=== PATIENT | female | born 1985 | race Two or more races ===

== ENCOUNTER 2017-03-22 13:18 | Inpatient (IN) | payer MEDICAID, OTHER ==
[~2017-03-22] VITALS: Ht 157.5 cm; Wt 148.6 kg
[2017-03-22 14:05] LABS: Basophils # (auto) 0.1 uL; Eosinophils # (auto) 0.1 uL; Eosinophils % (auto) 2.1 % (0.0-7.0); Hematocrit 31.5 % (36.0-46.0); Hemoglobin 10.1 g/dL (12.2-16.2); Lymphocytes % (auto) 14.9 % (10.0-50.0); Mean Corpuscular Hemoglobin 27.4 pg (28.0-32.0); Mean Corpuscular Hgb Conc. 32.2 g/dL (32.0-36.0); Mean Corpuscular Volume 85.1 fL (80.0-100.0); Mean Platelet Volume 10.8 fL (6.9-10.8); Monocytes # (auto) 0.8 uL; Monocytes % (auto) 12.1 % (0.0-12.0); Neutrophils # (auto) 4.6 uL; Neutrophils % (auto) 69.9 % (37.0-80.0); Nucleated Red Blood Cells % 0.2 %; Platelet Count (auto) 239 10^3/uL (140-450); Red Cell Distribution Width 14.8 % (11.8-14.3); White Blood Cell 6.6 10^3/uL (4.4-10.8)
[2017-03-22 14:20] LABS: Albumin 2.5 g/dL (3.4-5.0); BUN/Creatinine Ratio 17.9; Calcium 7.9 mg/dL (8.5-10.1); Potassium 5.4 mmol/L (3.5-5.1)
[2017-03-22 14:22] LABS: Bilirubin, Total 0.3 mg/dL (0.2-1.0); Total Protein 6.8 g/dL (6.4-8.2)
[2017-03-22 16:49] LABS: B-Type Natriuretic Peptide 1824.75 pg/mL (0-100)
[2017-03-22 17:06] LABS: Temperature: 23.3 C (20.0-25.0)
[2017-03-22 17:14] LABS: Urine Bilirubin Negative (Negative); Urine Blood 1+ /uL (Negative); Urine Color Yellow (Yellow); Urine Glucose Normal (Normal); Urine Ketone Negative (Negative); Urine Mucus FEW (None Seen); Urine Nitrite Negative (Negative); Urine RBC 10 /hpf (0 - 4); Urine Squamous Epithelial Cell FEW /hpf (<5); Urine Urobilinogen Normal (Negative); Urine WBC Clumps PRESENT /hpf (None Seen); Urine pH 6.5 (5.0-8.0)
[2017-03-22 17:31] LABS: INR 1.05 (0.9-1.15); Partial Thromboplastin Time 31.1 sec (22.64-33.71); Prothrombin Time 11.4 sec (9.37-12.3)
[2017-03-22] MEDS ORDERED: HYDROcodone-ACET 10/325MG TAB PO ONE (18:15)
[2017-03-22] MEDS ORDERED: cefTRIAXone 1GM/50ML D5W 50 ML IV ONE (18:15)
[2017-03-22] MEDS ORDERED: TEMAZEPAM 15 MG CAP PO PRN (22:30)
[2017-03-22] MEDS ORDERED: POTASSIUM CHL 20 Meq TABLET PO ONE (22:30)
[2017-03-22] MEDS ORDERED: FUROSEMIDE 40 MG/4 ML VIAL IV ONE (22:30)
[2017-03-22] MEDS ORDERED: AZITHROMYCIN 500MG/D5W 250ML 250 ML IV ONE (22:45)
[2017-03-22] MEDS: ACETAMINOPHEN 500 MG TAB PO PRN (23:36)
[2017-03-22 23:55] VITALS: BP 161/102
[2017-03-23] VITALS: BP 161/102
[2017-03-23] MEDS: HYDROcodone-ACET 5/325MG TAB PO PRN ×4 (02:17→23:07)
[2017-03-23] MEDS ORDERED: LOSA100T27 PO (03:51)
[2017-03-23] MEDS ORDERED: HYDR200T36 PO (03:51)
[2017-03-23] MEDS ORDERED: HYDR25TA35 PO (03:51)
[2017-03-23] MEDS ORDERED: LEVO25TA6 PO (03:51)
[2017-03-23] MEDS ORDERED: POTA20TA53 PO (03:51)
[2017-03-23] MEDS ORDERED: METO-158 PO (03:51)
[2017-03-23] MEDS ORDERED: FURO20TA PO (03:51)
[2017-03-23 05:00] VITALS: BP 147/101
[2017-03-23] MEDS: LEVOTHYROXINE SODIUM 100 MCG TAB PO SCH (05:34)
[2017-03-23 06:52] LABS: Basophils # (auto) 0.1 uL; Eosinophils # (auto) 0.1 uL; Eosinophils % (auto) 1.3 % (0.0-7.0); Hematocrit 30.1 % (36.0-46.0); Hemoglobin 9.8 g/dL (12.2-16.2); Lymphocytes # (auto) 1.1 uL; Lymphocytes % (auto) 15.6 % (10.0-50.0); Mean Corpuscular Hemoglobin 28.2 pg (28.0-32.0); Mean Corpuscular Hgb Conc. 32.7 g/dL (32.0-36.0); Mean Corpuscular Volume 86.4 fL (80.0-100.0); Mean Platelet Volume 10.5 fL (6.9-10.8); Monocytes % (auto) 13.7 % (0.0-12.0); Neutrophils # (auto) 4.7 uL; Neutrophils % (auto) 68.4 % (37.0-80.0); Nucleated Red Blood Cells % 0.2 %; Platelet Count (auto) 202 10^3/uL (140-450); Red Cell Distribution Width 15.1 % (11.8-14.3); White Blood Cell 6.9 10^3/uL (4.4-10.8)
[2017-03-23 07:07] LABS: BUN/Creatinine Ratio 17.3; Calcium 7.6 mg/dL (8.5-10.1); Potassium 4.7 mmol/L (3.5-5.1)
[2017-03-23 07:13] LABS: Temperature: 23.3 C (20.0-25.0)
[2017-03-23 07:35] VITALS: BP 145/99
[2017-03-23] MEDS: ONDANSETRON HCL 4 MG/2 ML VIAL IV PRN ×3 (08:46→18:49)
[2017-03-23] MEDS ORDERED: PIPERACILLIN-TAZOB 3.375GM 100 ML IV ONE (09:15)
[2017-03-23] MEDS ORDERED: methylPREDNISolone SOD SUCC 40 MG/ML VL IV SCH (10:00)
[2017-03-23] MEDS ORDERED: LOSARTAN POTASSIUM 50 MG TAB PO SCH (10:00)
[2017-03-23] MEDS ORDERED: POTASSIUM CHL 20 Meq TABLET PO SCH (10:00)
[2017-03-23] MEDS ORDERED: METOPROLOL TARTRATE 50 MG TAB PO SCH (10:00)
[2017-03-23] MEDS ORDERED: FUROSEMIDE 40 MG/4 ML VIAL IV SCH (10:00)
[2017-03-23] MEDS: HYDROXYCHLOROQUINE SULFATE 200 MG TAB PO SCH (10:21)
[2017-03-23 12:10] VITALS: BP 151/98
[2017-03-23] MEDS: FUROSEMIDE 100 MG/10ML VIAL IV SCH ×2 (12:12→17:18)
[2017-03-23] MEDS ORDERED: METOPROLOL TARTRATE 25 MG TAB PO ONE (12:15)
[2017-03-23] MEDS ORDERED: hydrALAZINE HCL 25 MG TAB PO SCH (14:00)
[2017-03-23] MEDS: AZITHROMYCIN 500MG/D5W 250ML 250 ML IV SCH ×2 (14:03→14:26)
[2017-03-23] MEDS: hydrALAZINE HCL 25 MG TAB PO SCH ×2 (14:03→22:44)
[2017-03-23] MEDS: PIPERACILLIN-TAZOB 3.375GM 100 ML IV SCH ×2 (14:07→18:43)
[2017-03-23] MEDS ORDERED: DOCUSATE SOD 100 MG CAP PO PRN (15:45)
[2017-03-23] MEDS: POLYETHYLENE GLYCOL 17 GM PWDR PO PRN (16:19)
[2017-03-23] MEDS: LINEZOLID 600MG/300ML 300 ML IV SCH ×2 (16:33→22:44)
[2017-03-23 17:29] VITALS: BP 155/101
[2017-03-23 22:00] VITALS: BP 145/86
[2017-03-23] MEDS: METOPROLOL TARTRATE 50 MG TAB PO SCH (22:44)
[2017-03-24] MEDS: PIPERACILLIN-TAZOB 3.375GM 100 ML IV SCH ×4 (03:08→21:22)
[2017-03-24 05:00] VITALS: BP 132/89
[2017-03-24] MEDS: FUROSEMIDE 100 MG/10ML VIAL IV SCH ×2 (06:02→18:28)
[2017-03-24] MEDS: LEVOTHYROXINE SODIUM 100 MCG TAB PO SCH (06:03)
[2017-03-24] MEDS: HYDROcodone-ACET 5/325MG TAB PO PRN ×3 (06:03→21:42)
[2017-03-24] MEDS: hydrALAZINE HCL 25 MG TAB PO SCH ×3 (06:03→21:31)
[2017-03-24 07:50] LABS: Hematocrit 30.7 % (36.0-46.0); Hemoglobin 9.9 g/dL (12.2-16.2); Mean Corpuscular Hemoglobin 27.8 pg (28.0-32.0); Mean Corpuscular Hgb Conc. 32.4 g/dL (32.0-36.0); Mean Platelet Volume 10.5 fL (6.9-10.8); Platelet Count (auto) 187 10^3/uL (140-450); Red Cell Distribution Width 14.8 % (11.8-14.3); White Blood Cell 7.5 10^3/uL (4.4-10.8)
[2017-03-24 08:03] LABS: BUN/Creatinine Ratio 14.8; Calcium 7.6 mg/dL (8.5-10.1); Phosphorus 5.5 mg/dL (2.5-4.90); Potassium 4.4 mmol/L (3.5-5.1)
[2017-03-24 08:19] LABS: Metamyelocytes % 0; Myelocytes % 0; Promyelocytes % 0; Reactive Lymphocytes 0
[2017-03-24] MEDS: ONDANSETRON HCL 4 MG/2 ML VIAL IV PRN ×3 (08:46→18:28)
[2017-03-24 08:54] LABS: Large Platelets MODERATE; Platelet Clumps FEW; Platelet Estimate Adequate
[2017-03-24] MEDS: HYDROXYCHLOROQUINE SULFATE 200 MG TAB PO SCH (08:58)
[2017-03-24] MEDS: METOPROLOL TARTRATE 50 MG TAB PO SCH (08:59)
[2017-03-24 09:04] LABS: Temperature: 22.2 C (20.0-25.0)
[2017-03-24 09:42] VITALS: BP 147/93
[2017-03-24] MEDS: LINEZOLID 600MG/300ML 300 ML IV SCH ×2 (11:30→21:30)
[2017-03-24] MEDS: POLYETHYLENE GLYCOL 17 GM PWDR PO PRN (11:34)
[2017-03-24] MEDS: MORPHINE SULF INJ 2 MG/ML SYRINGE 1ML IV PRN ×2 (12:14→16:26)
[2017-03-24 13:00] VITALS: BP 140/96
[2017-03-24] MEDS: MYCOPHENOLATE 500 MG TAB PO SCH ×2 (13:15→21:43)
[2017-03-24] MEDS: METOLAZONE 5 MG TAB PO SCH (13:24)
[2017-03-24 16:19] VITALS: BP 151/103
[2017-03-24] MEDS: FAMOTIDINE 20 MG TAB PO SCH (21:32)
[2017-03-24 22:06] VITALS: BP 150/90
[2017-03-25] MEDS: HYDROcodone-ACET 5/325MG TAB PO PRN ×4 (02:28→23:07)
[2017-03-25] MEDS: MORPHINE SULF INJ 2 MG/ML SYRINGE 1ML IV PRN (02:38)
[2017-03-25] MEDS: ONDANSETRON HCL 4 MG/2 ML VIAL IV PRN ×2 (02:38→06:59)
[2017-03-25] MEDS: PIPERACILLIN-TAZOB 3.375GM 100 ML IV SCH ×2 (03:00→10:01)
[2017-03-25 05:00] VITALS: BP 128/59
[2017-03-25] MEDS: hydrALAZINE HCL 25 MG TAB PO SCH ×3 (06:57→23:08)
[2017-03-25] MEDS: LEVOTHYROXINE SODIUM 100 MCG TAB PO SCH (06:58)
[2017-03-25] MEDS: FUROSEMIDE 100 MG/10ML VIAL IV SCH ×2 (07:04→18:31)
[2017-03-25 07:17] LABS: Basophils # (auto) 0.1 uL; Basophils % (auto) 0.9 % (0.0-2.0); Eosinophils # (auto) 0.2 uL; Eosinophils % (auto) 2.1 % (0.0-7.0); Hematocrit 32.5 % (36.0-46.0); Hemoglobin 10.7 g/dL (12.2-16.2); Lymphocytes # (auto) 1.6 uL; Lymphocytes % (auto) 15.6 % (10.0-50.0); Mean Corpuscular Hemoglobin 27.6 pg (28.0-32.0); Mean Corpuscular Hgb Conc. 32.8 g/dL (32.0-36.0); Mean Corpuscular Volume 84.3 fL (80.0-100.0); Mean Platelet Volume 10.9 fL (6.9-10.8); Monocytes # (auto) 1.2 uL; Monocytes % (auto) 11.6 % (0.0-12.0); Neutrophils # (auto) 6.9 uL; Neutrophils % (auto) 69.8 % (37.0-80.0); Nucleated Red Blood Cells % 0.2 %; Platelet Count (auto) 214 10^3/uL (140-450); Red Cell Distribution Width 15.5 % (11.8-14.3)
[2017-03-25 07:33] LABS: INR 1.12 (0.9-1.15); Prothrombin Time 12.2 sec (9.37-12.3)
[2017-03-25 07:45] LABS: BUN/Creatinine Ratio 13.9; Calcium 7.6 mg/dL (8.5-10.1); Potassium 4.2 mmol/L (3.5-5.1)
[2017-03-25 07:47] VITALS: BP_SYST 131; BP_SYST 142; BP_DIAS 102; BP_DIAS 54
[2017-03-25] MEDS ORDERED: LIDOCAINE 2%HCL (LOCAL ANESTH.) INJ 20ML MDV ONE (08:29)
[2017-03-25] MEDS: FAMOTIDINE 20 MG TAB PO SCH ×2 (10:02→23:09)
[2017-03-25] MEDS: METOLAZONE 5 MG TAB PO SCH (10:02)
[2017-03-25] MEDS: HYDROXYCHLOROQUINE SULFATE 200 MG TAB PO SCH (10:03)
[2017-03-25] MEDS: METOPROLOL SUCCINATE XL 50 MG TAB PO SCH (10:03)
[2017-03-25] MEDS ORDERED: fentaNYL CITRATE 100 MCG/2 ML VL ONE (10:51)
[2017-03-25] MEDS ORDERED: FLUMAZENIL 0.1 MG/ML INJ 10ML MDV IV ONE (10:51)
[2017-03-25] MEDS ORDERED: NALOXONE HCL 0.4 MG/ML VIAL ONE (10:51)
[2017-03-25] MEDS ORDERED: MIDAZOLAM HCL 1MG/1ML-2 ML VIAL ONE (10:51)
[2017-03-25] MEDS: AZITHROMYCIN 500MG/D5W 250ML 250 ML IV SCH (11:45)
[2017-03-25] MEDS: LINEZOLID 600MG/300ML 300 ML IV SCH (11:46)
[2017-03-25] MEDS: MYCOPHENOLATE 500 MG TAB PO SCH ×2 (12:19→23:15)
[2017-03-25 12:25] VITALS: BP 138/85
[2017-03-25] MEDS ORDERED: LEVOFLOXACIN 500 MG TAB PO ONE (14:15)
[2017-03-25] MEDS: PROMETHAZINE HCL 25 MG/ML 1ML IV PRN ×2 (15:54→23:06)
[2017-03-25 16:45] VITALS: BP 128/88
[2017-03-25 22:00] VITALS: BP 112/75
[2017-03-25] MEDS ORDERED: PNEUMOCOCCAL VACC POLYS 25 MCG/0.5 ML VIAL IM ONE (22:00)
[2017-03-25] MEDS: methylPREDNISolone SOD SUCC 125 MG/2 ML VL IV SCH (23:09)
[2017-03-26 05:00] VITALS: BP 139/81
[2017-03-26] MEDS: FUROSEMIDE 100 MG/10ML VIAL IV SCH ×2 (06:35→18:00)
[2017-03-26] MEDS: LEVOTHYROXINE SODIUM 100 MCG TAB PO SCH (06:36)
[2017-03-26] MEDS: hydrALAZINE HCL 25 MG TAB PO SCH ×3 (06:37→22:23)
[2017-03-26] MEDS: HYDROcodone-ACET 5/325MG TAB PO PRN ×2 (06:47→20:40)
[2017-03-26 07:44] LABS: Basophils # (auto) 0 uL; Basophils % (auto) 0.4 % (0.0-2.0); Eosinophils # (auto) 0 uL; Eosinophils % (auto) 0.2 % (0.0-7.0); Hematocrit 31.3 % (36.0-46.0); Hemoglobin 10.3 g/dL (12.2-16.2); Lymphocytes # (auto) 1.2 uL; Mean Corpuscular Hemoglobin 27.9 pg (28.0-32.0); Mean Corpuscular Hgb Conc. 33.1 g/dL (32.0-36.0); Mean Corpuscular Volume 84.4 fL (80.0-100.0); Mean Platelet Volume 10.5 fL (6.9-10.8); Monocytes # (auto) 0.3 uL; Neutrophils # (auto) 8.3 uL; Neutrophils % (auto) 84.4 % (37.0-80.0); Nucleated Red Blood Cells % 0.2 %; Platelet Count (auto) 157 10^3/uL (140-450); Red Cell Distribution Width 15.3 % (11.8-14.3); White Blood Cell 9.8 10^3/uL (4.4-10.8)
[2017-03-26 07:53] LABS: Calcium 8.1 mg/dL (8.5-10.1); Magnesium 1.9 mg/dL (1.6-2.6); Potassium 4.4 mmol/L (3.5-5.1)
[2017-03-26 09:08] VITALS: BP 159/95
[2017-03-26] MEDS: LEVOFLOXACIN 250 MG TAB PO SCH (11:06)
[2017-03-26] MEDS: METOPROLOL SUCCINATE XL 50 MG TAB PO SCH (11:07)
[2017-03-26] MEDS: ACETAMINOPHEN 500 MG TAB PO PRN (11:07)
[2017-03-26] MEDS: HYDROXYCHLOROQUINE SULFATE 200 MG TAB PO SCH (11:07)
[2017-03-26] MEDS: methylPREDNISolone SOD SUCC 125 MG/2 ML VL IV SCH (11:08)
[2017-03-26] MEDS: FAMOTIDINE 20 MG TAB PO SCH ×2 (11:08→22:21)
[2017-03-26] MEDS ORDERED: LABETALOL HCL 200 MG TAB PO SCH (11:30)
[2017-03-26] MEDS: PROMETHAZINE HCL 25 MG/ML 1ML IV PRN (12:31)
[2017-03-26 13:00] VITALS: BP 133/86
[2017-03-26 13:07] LABS: Thyroid Peroxidase (TPO) Ab 548 IU/mL (0-34)
[2017-03-26] MEDS: MYCOPHENOLATE 500 MG TAB PO SCH ×2 (16:42→22:18)
[2017-03-26 16:58] VITALS: BP 156/86
[2017-03-26 21:08] LABS: Sjogren's Anti-SS-A Antibody >8.0 AI (0.0-0.9)
[2017-03-26] MEDS: methylPREDNISolone SOD SUCC 500 MG in SODIUM CHL 0.9% 100 ML IV SCH (22:23)
[2017-03-26 23:11] LABS: Sjogren's Anti-SS-A Antibody >8.0 AI (0.0-0.9)
[2017-03-27] VITALS (7 sets, daily range): BP systolic 103–137; BP diastolic 66–90
[2017-03-27] MEDS: HYDROcodone-ACET 5/325MG TAB PO PRN ×3 (02:37→22:02)
[2017-03-27 06:24] LABS: Hematocrit 29.2 % (36.0-46.0); Hemoglobin 9.6 g/dL (12.2-16.2); Mean Corpuscular Hemoglobin 28.1 pg (28.0-32.0); Mean Corpuscular Hgb Conc. 32.9 g/dL (32.0-36.0); Mean Corpuscular Volume 85.5 fL (80.0-100.0); Mean Platelet Volume 11.1 fL (6.9-10.8); Platelet Count (auto) 125 10^3/uL (140-450); Red Cell Distribution Width 15.3 % (11.8-14.3); White Blood Cell 9.5 10^3/uL (4.4-10.8)
[2017-03-27] MEDS: hydrALAZINE HCL 25 MG TAB PO SCH ×3 (06:27→22:01)
[2017-03-27] MEDS: FUROSEMIDE 100 MG/10ML VIAL IV SCH ×2 (06:27→18:28)
[2017-03-27] MEDS: PROMETHAZINE HCL 25 MG/ML 1ML IV PRN (06:28)
[2017-03-27] MEDS: LEVOTHYROXINE SODIUM 100 MCG TAB PO SCH (06:28)
[2017-03-27 06:35] LABS: Metamyelocytes % 0; Myelocytes % 0; Promyelocytes % 0; Reactive Lymphocytes 0
[2017-03-27 06:47] LABS: BUN/Creatinine Ratio 17.8; Calcium 7.8 mg/dL (8.5-10.1); Magnesium 2.3 mg/dL (1.6-2.6)
[2017-03-27 06:49] LABS: Potassium 4.2 mmol/L (3.5-5.1)
[2017-03-27 07:45] LABS: Platelet Estimate Decreased; RBC Morphology Normal
[2017-03-27] MEDS: METOPROLOL SUCCINATE XL 50 MG TAB PO SCH (10:00)
[2017-03-27] MEDS: LEVOFLOXACIN 250 MG TAB PO SCH (10:37)
[2017-03-27] MEDS: FAMOTIDINE 20 MG TAB PO SCH (10:37)
[2017-03-27] MEDS: MYCOPHENOLATE 500 MG TAB PO SCH ×2 (10:37→22:00)
[2017-03-27] MEDS: methylPREDNISolone SOD SUCC 500 MG in SODIUM CHL 0.9% 100 ML IV SCH ×2 (10:37→22:02)
[2017-03-27] MEDS: HYDROXYCHLOROQUINE SULFATE 200 MG TAB PO SCH (10:38)
[2017-03-27 12:07] LABS: Antiproteinase 3 (PR-3) Ab <3.5 U/mL (0.0-3.5)
[2017-03-27 12:07] LABS: Antiproteinase 3 (PR-3) Ab <3.5 U/mL (0.0-3.5)
[2017-03-27] MEDS ORDERED: CHOLECALCIFEROL (VITD3) 1,000 UNIT TAB PO ONE (14:00)
[2017-03-27] MEDS ORDERED: PANTOPRAZOLE 40 MG/10 ML VIAL IV ONE (14:00)
[2017-03-27] MEDS ORDERED: ASPirin 81 mg TAB PO ONE (14:00)
[2017-03-27] MEDS ORDERED: predniSONE 20 MG TAB PO ONE (14:00)
[2017-03-27] MEDS ORDERED: CALCIUM ACETATE 667 MG CAP PO SCH (18:00)
[2017-03-27] MEDS: CALCIUM W/VIT D (600MG/400IU) TAB PO SCH (18:00)
[2017-03-27] MEDS ORDERED: PNEUMOCOCCAL VACC POLYS 25 MCG/0.5 ML VIAL IM ONE (22:00)
[2017-03-28 00:13] LABS: Vitamin D 25-Hydroxy 12 ng/mL (.); Vitamin D-2 25-Hydroxy <1.0 ng/mL (.)
[2017-03-28 05:00] VITALS: BP 123/77
[2017-03-28 06:26] LABS: Basophils # (auto) 0 uL; Basophils % (auto) 0.1 % (0.0-2.0); Eosinophils # (auto) 0 uL; Hematocrit 26.5 % (36.0-46.0); Hemoglobin 8.7 g/dL (12.2-16.2); Lymphocytes # (auto) 1.1 uL; Mean Corpuscular Hemoglobin 27.8 pg (28.0-32.0); Mean Corpuscular Hgb Conc. 32.8 g/dL (32.0-36.0); Mean Corpuscular Volume 84.8 fL (80.0-100.0); Monocytes # (auto) 0.5 uL; Monocytes % (auto) 5.2 % (0.0-12.0); Neutrophils # (auto) 7.8 uL; Neutrophils % (auto) 82.7 % (37.0-80.0); Nucleated Red Blood Cells % 0.1 %; Platelet Count (auto) 86 10^3/uL (140-450); Red Cell Distribution Width 15.4 % (11.8-14.3); White Blood Cell 9.4 10^3/uL (4.4-10.8)
[2017-03-28] MEDS: FUROSEMIDE 100 MG/10ML VIAL IV SCH ×2 (06:32→18:31)
[2017-03-28] MEDS: hydrALAZINE HCL 25 MG TAB PO SCH ×3 (06:33→21:40)
[2017-03-28] MEDS: LEVOTHYROXINE SODIUM 100 MCG TAB PO SCH (06:33)
[2017-03-28 06:38] LABS: Calcium 7.5 mg/dL (8.5-10.1); Magnesium 2.4 mg/dL (1.6-2.6); Potassium 4.1 mmol/L (3.5-5.1)
[2017-03-28 06:42] LABS: BUN/Creatinine Ratio 24.5
[2017-03-28] MEDS: HYDROcodone-ACET 5/325MG TAB PO PRN ×2 (08:14→18:30)
[2017-03-28] MEDS: CALCIUM ACETATE 667 MG CAP PO SCH ×3 (08:14→18:29)
[2017-03-28] MEDS: CALCIUM W/VIT D (600MG/400IU) TAB PO SCH ×2 (08:14→18:29)
[2017-03-28 09:00] VITALS: BP 138/91
[2017-03-28] MEDS: PANTOPRAZOLE 40 MG/10 ML VIAL IV SCH (09:35)
[2017-03-28] MEDS: CHOLECALCIFEROL (VITD3) 1,000 UNIT TAB PO SCH (09:36)
[2017-03-28] MEDS: ASPirin 81 mg TAB PO SCH (09:36)
[2017-03-28] MEDS: LEVOFLOXACIN 250 MG TAB PO SCH (09:36)
[2017-03-28] MEDS: HYDROXYCHLOROQUINE SULFATE 200 MG TAB PO SCH (09:36)
[2017-03-28] MEDS: METOPROLOL SUCCINATE XL 50 MG TAB PO SCH (09:37)
[2017-03-28] MEDS: MYCOPHENOLATE 500 MG TAB PO SCH ×2 (09:39→21:39)
[2017-03-28] MEDS: methylPREDNISolone SOD SUCC 500 MG in SODIUM CHL 0.9% 100 ML IV SCH (09:50)
[2017-03-28 10:08] LABS: Anti-intermyofibrillar Ab Negative (Neg:<1:20); Anti-sarcolemma Antibody Negative (Neg:<1:20)
[2017-03-28 13:00] VITALS: BP 131/83
[2017-03-28] MEDS ORDERED: MORPHINE SULFATE 10 MG/ML INJ 1ML SDV IV PRN (16:15)
[2017-03-28 17:00] VITALS: BP 146/74
[2017-03-28 20:00] VITALS: BP 150/92
[2017-03-28 21:13] VITALS: BP 150/92
[2017-03-29] MEDS: PROMETHAZINE HCL 25 MG/ML 1ML IV PRN (04:50)
[2017-03-29] MEDS: HYDROcodone-ACET 5/325MG TAB PO PRN (04:50)
[2017-03-29 05:00] VITALS: BP 150/81
[2017-03-29] MEDS: FUROSEMIDE 100 MG/10ML VIAL IV SCH ×2 (06:36→17:42)
[2017-03-29] MEDS: hydrALAZINE HCL 25 MG TAB PO SCH ×3 (06:36→22:31)
[2017-03-29] MEDS: LEVOTHYROXINE SODIUM 100 MCG TAB PO SCH (06:37)
[2017-03-29] MEDS: CALCIUM ACETATE 667 MG CAP PO SCH ×3 (08:03→17:43)
[2017-03-29] MEDS: CALCIUM W/VIT D (600MG/400IU) TAB PO SCH ×2 (08:04→17:42)
[2017-03-29] MEDS: PANTOPRAZOLE 40 MG/10 ML VIAL IV SCH (09:28)
[2017-03-29] MEDS: MYCOPHENOLATE 500 MG TAB PO SCH ×2 (09:28→22:31)
[2017-03-29] MEDS: ASPirin 81 mg TAB PO SCH (09:28)
[2017-03-29] MEDS: predniSONE 20 MG TAB PO SCH (09:28)
[2017-03-29] MEDS: CHOLECALCIFEROL (VITD3) 1,000 UNIT TAB PO SCH (09:29)
[2017-03-29] MEDS: LEVOFLOXACIN 250 MG TAB PO SCH (09:29)
[2017-03-29] MEDS: HYDROXYCHLOROQUINE SULFATE 200 MG TAB PO SCH (09:29)
[2017-03-29 09:30] VITALS: BP 98/46
[2017-03-29 09:34] VITALS: BP 128/72
[2017-03-29] MEDS: METOPROLOL SUCCINATE XL 50 MG TAB PO SCH (10:24)
[2017-03-29 14:16] VITALS: BP 163/102
[2017-03-29 17:14] VITALS: BP 154/95
[2017-03-29 22:00] VITALS: BP 160/97
[2017-03-30 05:19] VITALS: BP 148/77
[2017-03-30 05:55] LABS: Hemoglobin 9.5 g/dL (12.2-16.2); Mean Corpuscular Hemoglobin 28.2 pg (28.0-32.0); Mean Corpuscular Hgb Conc. 32.9 g/dL (32.0-36.0); Mean Corpuscular Volume 85.6 fL (80.0-100.0); Platelet Count (auto) 81 10^3/uL (140-450); Red Cell Distribution Width 15.6 % (11.8-14.3); White Blood Cell 9.8 10^3/uL (4.4-10.8)
[2017-03-30] MEDS: hydrALAZINE HCL 25 MG TAB PO SCH ×3 (05:56→21:58)
[2017-03-30] MEDS: FUROSEMIDE 100 MG/10ML VIAL IV SCH ×2 (05:57→18:29)
[2017-03-30] MEDS: LEVOTHYROXINE SODIUM 100 MCG TAB PO SCH (05:58)
[2017-03-30 06:02] LABS: Metamyelocytes % 0; Myelocytes % 0; Promyelocytes % 0; Reactive Lymphocytes 0
[2017-03-30 06:12] LABS: BUN/Creatinine Ratio 42.3; Calcium 7.9 mg/dL (8.5-10.1); Potassium 3.7 mmol/L (3.5-5.1)
[2017-03-30] MEDS: HYDROcodone-ACET 5/325MG TAB PO PRN (06:15)
[2017-03-30 06:41] LABS: Anisocytosis Slight; Macrocytosis Slight; Platelet Estimate Decreased
[2017-03-30] MEDS: CALCIUM ACETATE 667 MG CAP PO SCH ×3 (08:33→18:29)
[2017-03-30] MEDS: CALCIUM W/VIT D (600MG/400IU) TAB PO SCH ×2 (08:33→18:28)
[2017-03-30 09:54] VITALS: BP 151/90
[2017-03-30] MEDS: METOPROLOL SUCCINATE XL 50 MG TAB PO SCH (10:24)
[2017-03-30] MEDS: CHOLECALCIFEROL (VITD3) 1,000 UNIT TAB PO SCH (10:24)
[2017-03-30] MEDS: ASPirin 81 mg TAB PO SCH (10:24)
[2017-03-30] MEDS: HYDROXYCHLOROQUINE SULFATE 200 MG TAB PO SCH (10:25)
[2017-03-30] MEDS: predniSONE 20 MG TAB PO SCH (10:25)
[2017-03-30] MEDS: MYCOPHENOLATE 500 MG TAB PO SCH ×2 (10:25→21:58)
[2017-03-30] MEDS: PANTOPRAZOLE 40 MG TAB PO SCH (10:25)
[2017-03-30] MEDS: LEVOFLOXACIN 250 MG TAB PO SCH (10:25)
[2017-03-30] MEDS: PROMETHAZINE HCL 25 MG/ML 1ML IV PRN (11:45)
[2017-03-30 13:13] VITALS: BP 133/74
[2017-03-30 16:55] VITALS: BP 126/74
[2017-03-30 21:48] VITALS: BP 151/89
[2017-03-31 05:42] VITALS: BP 144/88
[2017-03-31] MEDS: FUROSEMIDE 100 MG/10ML VIAL IV SCH (06:22)
[2017-03-31] MEDS: LEVOTHYROXINE SODIUM 100 MCG TAB PO SCH (06:22)
[2017-03-31] MEDS: hydrALAZINE HCL 25 MG TAB PO SCH (06:22)
[2017-03-31] MEDS: CALCIUM ACETATE 667 MG CAP PO SCH ×2 (08:00→11:47)
[2017-03-31 09:14] VITALS: BP 134/83
[2017-03-31 11:18] VITALS: BP 134/83
[2017-03-31] MEDS: HYDROXYCHLOROQUINE SULFATE 200 MG TAB PO SCH (11:37)
[2017-03-31] MEDS: ASPirin 81 mg TAB PO SCH (11:37)
[2017-03-31] MEDS: predniSONE 20 MG TAB PO SCH (11:37)
[2017-03-31] MEDS: MYCOPHENOLATE 500 MG TAB PO SCH (11:37)
[2017-03-31] MEDS: PANTOPRAZOLE 40 MG TAB PO SCH (11:37)
[2017-03-31] MEDS: CHOLECALCIFEROL (VITD3) 1,000 UNIT TAB PO SCH (11:37)
[2017-03-31] MEDS: CALCIUM W/VIT D (600MG/400IU) TAB PO SCH (11:38)
[2017-03-31] MEDS: LEVOFLOXACIN 250 MG TAB PO SCH (11:38)
[2017-03-31] MEDS: METOPROLOL SUCCINATE XL 50 MG TAB PO SCH (11:39)
[2017-03-31 13:00] VITALS: BP 138/78
== END 2017-03-31 19:19 | disposition home or self-care (01) | DRG 346 ==
LOC: ER 13:18 → TELE 13:19 → TELE-CENTR 03-23 00:05 → CENTRAL 03-29 10:50
PROVIDERS: ADMIT Nurse Practitioner Family; ATTEND Internal Medicine Pulmonary Disease
PROC: 0TB13ZX Excision of Left Kidney, Percutaneous Approach, Diagnostic (ICD-10-PCS; principal; 2017-03-25)
DX: M32.9 Systemic lupus erythematosus, unspecified (principal); N17.0 Acute kidney failure with tubular necrosis; I50.43 Acute on chronic combined systolic (congestive) and diastolic (congestive) heart failure; J18.1 Lobar pneumonia, unspecified organism; I42.9 Cardiomyopathy, unspecified; I13.0 Hypertensive heart and chronic kidney disease with heart failure and stage 1 through stage 4 chronic kidney disease, or unspecified chronic kidney disease; N04.9 Nephrotic syndrome with unspecified morphologic changes; N18.3 Chronic kidney disease, stage 3 (moderate); Z68.43 Body mass index [BMI] 50.0-59.9, adult; E83.39 Other disorders of phosphorus metabolism; N05.9 Unspecified nephritic syndrome with unspecified morphologic changes; M32.14 Glomerular disease in systemic lupus erythematosus; E87.5 Hyperkalemia; E66.01 Morbid (severe) obesity due to excess calories; E03.9 Hypothyroidism, unspecified; D50.8 Other iron deficiency anemias; N39.0 Urinary tract infection, site not specified; D63.8 Anemia in other chronic diseases classified elsewhere; K59.00 Constipation, unspecified; Z86.32 Personal history of gestational diabetes; Z23 Encounter for immunization
CPT/HCPCS: 10022; 36415; 71020; 76775; 77012; 80048; 80053; 80307; 81001; 81025; 82306; 82570; 83516; 83520; 83605; 83735; 83880; 83970; 84100; 84156; 84300; 84439; 84443; 84484; 84550; 85007; 85025; 85027; 85610; 85613; 85652; 85670; 85705; 85730; 85732; 86160; 86225; 86235; 86256; 87040; 87070; 87081; 87086; 87205; 93005; 93306; 94761; 96365; 96366; 96375; C9113; J0696; J2250; J2405; J2543; J7517